=== PATIENT | male | born 1995 | race Two or more races ===

== ENCOUNTER 2016-06-06 16:30 | Emergency (ER) | payer SELFPAY ==
[2016-06-06] MEDS ORDERED: IOPAMIDOL 300 (61%) 150 ML VIAL IV ONE (16:31)
[2016-06-06] MEDS ORDERED: ONDANSETRON 4 MG/2ML 2 ML VIAL ONE (17:02)
[2016-06-06] MEDS ORDERED: KETOROLAC TROMETHAMINE 30 MG/ML 1 ML VIAL ONE (17:02)
[2016-06-06 17:19] LABS: ABSOLUTE NEUTROPHIL COUNT 3.5 K/mm3 (1.8-7.7); BASO % 0.5 % (0.2-1.0); EOS # 0.1 (0.0-0.5); EOS % 0.9 % (0.9-2.9); HEMATOCRIT 43.9 % (32.0-52.0); HEMOGLOBIN 15.4 gm/l (14.0-18.0); IMM NEUT% 0.2 % (0-1); LYMPH # 1.6 (1.0-4.8); LYMPH % 28.1 % (15-45); MEAN CELL VOLUME 90.5 fl (80.0-94.0); MEAN CORPUSCULAR HEMOGLOBIN 31.8 pg (27.0-31.0); MEAN CORPUSCULAR HGB CONC 35.1 g/dl (33.0-37.0); MEAN PLATELET VOLUME 9.1 fl (7.4-10.4); MONO # 0.6 (0.0-0.8); MONO % 10.1 % (4-12); NEUT % 60.2 % (43-75); PLATELET COUNT 230 K/mm3 (130-400); RED CELL DISTRIBUTION WIDTH 11.8 % (11.5-14.5)
--- NOTE | 2016-06-06 17:52 | CT ---
ABD/PELVIS W/ CON COMPARISON: None. HISTORY: 21-year-old male with lumbar pain and right lower quadrant abdominal pain since 05/30/2016. Technique: Intravenous injection 125 mL Isovue 300. Using a [employer] [address] scanner, images were obtained from the diaphragm to the floor the pelvis. An automated dose reduction technique was used to minimize patient radiation dose. Dose information: CTDIvol (mGy): 9.70 DLP(mGycm): 485.10 FINDINGS: Lung bases: Normal. Inferior mediastinum and heart: Normal. Liver: Normal. Gallbladder:Normal. Bile ducts: Normal. Pancreas: Normal. Spleen: Normal. Adrenal glands: Normal. Kidneys: Normal. Ureters: Normal Urinary bladder: Normal. Prostate gland and seminal vesicles: Normal. Blood vessels: Normal Lymph nodes: Normal Stomach: Normal Duodenum: Normal Small intestine: Normal Appendix: Normal Colon: Normal Abdominal wall and supporting musculature: Normal Bones: Normal IMPRESSION: Normal study. Normal appendix. Normal kidneys. Normal lumbar spine. No free fluid. Normal terminal ileum. Report was sent to the emergency department [facility] record system 06/06/2014 at 17:54
[2016-06-06 19:35] LABS: ALB/GLOB RATIO 1.4 (>1.0); ALBUMIN 4.2 gm/dL (3.5-5.7); CALCIUM 9.8 mg/dL (8.6-10.3)
== END 2016-06-06 18:19 | disposition home or self-care (01) ==
LOC: ED 16:30
DX: M54.5 Low back pain (principal); R10.31 Right lower quadrant pain; R11.2 Nausea with vomiting, unspecified
CPT/HCPCS: 83690; 85025; 80053; 74177; 96375; 99284 ×2; 96374; J1885; J2405; Q9967